=== PATIENT | male | born 1960 | race Caucasian/White ===

== ENCOUNTER 2017-10-01 20:50 | Inpatient (IN) | payer OTHER ==
[~2017-10-01] VITALS: Ht 172.7 cm; Wt 85.7 kg
[2017-10-01 20:59] VITALS: BP 144/80
--- NOTE | 2017-10-01 22:20 | NUR ---
PATIENT IS A 57 Y/O MALE WHO PRESENTS TO THE ED C/O LEFT LEG PAIN. PT STATES, "MY LEG HAS BEEN HURTING." PT REPORTS 10/10 SHARP LEFT LEF PAIN THAT DOES NOT RADIATE. PT DENIES CP, SOB, N/V/D. NOTED LEFT LEG DISCOLORATION WITH CRACKED SKIN, NO OPEN BLEEDING. PT AAOX4, RR EVEN/UNLABORED. PT REPOSITIONED FOR COMFORT, BED IN LOWEST POSITION. ER MD DR. MORRIS NOTIFIED. WILL CONTINUE TO MONITOR.
[2017-10-01] MEDS ORDERED: AMPICILLIN/SULBACTAM 3 GM in NACL 0.9% 100 ML IV ONE (22:55)
[2017-10-01] MEDS ORDERED: CETI-32 PO (22:59)
[2017-10-01] MEDS ORDERED: DIPH25CA86 PO (22:59)
[2017-10-01] MEDS ORDERED: NACL 0.9% 1,000 ML IV SCH (23:27)
[2017-10-01] MEDS ORDERED: ACETAMINOPHEN 325 MG TAB PO PRN (23:30)
[2017-10-01] MEDS ORDERED: ONDANSETRON 4 MG/2 ML VIAL IVP PRN (23:30)
[2017-10-01 23:37] LABS: BASOPHILS # (AUTO) 0.3 K/uL (0.00-0.22); BASOPHILS % (AUTO) 3.6 % (0.0-2.0); EOSINOPHILS # (AUTO) 0.1 K/uL (0-0.4); EOSINOPHILS % (AUTO) 1.5 % (0.0-4.0); HEMATOCRIT 40.9 % (36-52); HEMOGLOBIN 13.5 g/dL (12.0-18.0); LYMPHOCYTES # (AUTO) 1.6 K/uL (2.0-11.5); LYMPHOCYTES % (AUTO) 18.7 % (20.5-51.1); MEAN CORPUSCULAR HEMOGLOBIN 29 pg (27-31); MEAN CORPUSCULAR HGB CONC 33 g/dL (33-37); MEAN CORPUSCULAR VOLUME 88 fL (80-94); MONOCYTES # (AUTO) 0.7 K/uL (0.8-1.0); MONOCYTES % (AUTO) 7.9 % (1.7-9.3); NEUTROPHILS % (AUTO) 68.3 % (42.2-75.2); PLATELET COUNT (AUTO) 275 K/uL (140-450); RED BLOOD CELL COUNT(AUTO) 4.63 MIL/uL (4.20-6.10); RED CELL DISTRIBUTION WIDTH 13.9 % (11.6-13.7); WHITE BLOOD COUNT (AUTO) 8.7 K/uL (4.8-10.8)
[2017-10-01 23:44] LABS: APPEARANCE,URINE CLEAR (CLEAR); BILIRUBIN,URINE NEGATIVE (NEGATIVE); BLOOD, URINE 1+ (NEGATIVE); COLOR,URINE YELLOW (YELLOW); LEUKOCYTE ESTERASE ,URINE NEGATIVE (NEGATIVE); NITRITE, URINE NEGATIVE (NEGATIVE); PH,URINE 5.5 (5.0-9.0); UGLUCOSE NEGATIVE (NEGATIVE)
[2017-10-01] MEDS ORDERED: AMPICILLIN/SULBACTAM 3 GM VIAL ONE (23:53)
[2017-10-01 23:57] LABS: ALBUMIN 3.8 g/dL (3.4-5.0); ANION GAP 13.7 (8-16); CARBON DIOXIDE 25.9 mmol/L (21-32); CREATININE 1.5 mg/dL (0.7-1.3); POTASSIUM 3.6 mmol/L (3.5-5.1); TOTAL BILIRUBIN 0.5 mg/dL (0.0-1.0)
--- NOTE | 2017-10-02 | NUR ---
Patient noted to have existing wounds upon arrival to ER. Photos taken of wound and placed in chart. Wound covered with dressing. Physician informed.
[2017-10-02 00:02] LABS: RBC,URINE 0-5 (RARE) /HPF (0-5); WBC,URINE 0-5 (RARE) /HPF (0-5)
[2017-10-02 00:10] VITALS: BP 123/80
--- NOTE | 2017-10-02 00:10 | NUR ---
Admitted from ER, with chief complaint of L LEG BURNING, DX LEG CELLULITIS. 57 y/o, Male, COOPERATIVE, SEEMS ANXIOUS/RESTLESS, AOX4, AMBULATORY, ABLE TO VERBALIZE NEEDS. PT HAS L LEG CELLULITIS, HEAD OF DIGITAL ADVERTISING & INTEGRATION. PT STATED THAT IT STARTED 4 WEEKS AGO, PT WAS TRYING TO TREAT IT WITH HYDROGEN PEROXIDE. PT ALSO C/O SMALL RED BUMPS ON BUE AND BLE THAT STARTED "WEEKS AGO." IV ACCESS ASYMPTOMATIC, PATENT AND INTACT. WILL ADMINISTER IVF ORDERED. DISCUSSED AND REVIEWED PLAN OF CARE WITH PT. PT VERBALIZED UNDERSTANDING. oriented to call light, bed, phone,television, bathroom, smoking policy, visiting hours, procedures, ID bracelet on. Belongings list checked. ALL NEEDS MET. SAFETY MEASURES ENSURED. CALL LIGHT WITHIN REACH. WILL CONTINUE TO MONITOR.
--- NOTE | 2017-10-02 00:15 | NUR ---
Patient will be admitted to care of DR. ALTMAN. Admited to M/S. Will go to room 120A. Belongings list completed. Report to COREY GALLOWAY.
--- NOTE | 2017-10-02 01:09 | NUR ---
CALLED DR BENITEZ, DISCUSSED PT DX L LEG CELLULITIS, MADE AWARE THAT PT HAS JUST RECEIVED 3GM UNASYN IVPB IN ER, ASKED IF UNASYN 1.5GM IVPB DUE NOW SHOULD BE GIVEN. STATED NO AND GIVE UNASYN IVPB Q6H. CLARIFIED ORDER OF NS AT 0ML, RECEIVED ORDER TO CHANGE TO NS AT 100ML/HR. ORDERS PENDING, WILL CARRY OUT.
[2017-10-02] MEDS: AMPICILLIN/SULBACTAM 1.5 GM in NACL 0.9% 50 ML IV SCH ×4 (01:10→17:18)
[2017-10-02] MEDS: NACL 0.9% 1,000 ML IV SCH ×2 (01:26→12:12)
[2017-10-02] MEDS: MORPHINE SULFATE 2 MG/ML SYR IVP PRN ×2 (01:29→09:49)
--- NOTE | 2017-10-02 01:30 | NUR ---
PT C/O LEG PAIN. SEE PAIN ASSESSMENT. ADMINISTERED MORPHINE IVP PRN ORDERED WITH EDUCATION. PT VERBALIZED UNDERSTANDING.
[2017-10-02] MEDS ORDERED: diphenhydrAMINE 50 MG/ML VIAL IVP PRN (01:40)
--- NOTE | 2017-10-02 02:00 | NUR ---
CALLED DR BENITEZ, DISCUSSED THAT PT IS C/O ITCHING ON LEGS. ORDERS RECEIVED FOR BENADRYL 25MG IVP TID PRN. ALSO MADE MD AWARE THAT PT SEEMS RESTLESS AND FIDGETS, ASKED IF UDS CAN BE ADDED, ORDERS RECEIVED TO ADD UDS. ADMINISTERED BENADRYL IVP PRN ORDERED WITH EDUCATION. PT VERBALIZED UNDERSTANDING. ALL NEEDS MET. IVF INFUSING WELL. SAFETY MEASURES ENSURED. CALL LIGHT WITHIN REACH. WILL CONTINUE TO MONITOR.
[2017-10-02 02:13] LABS: BARBITURATE, URINE NEG. ng/ml (NEG <=200); BENZODIAZEPINE, URINE NEG. ng/mL (NEG <=200); CANNABINOID, URINE POS. ng/mL (NEG <=50); COCAINE, URINE NEG. ng/mL (NEG <=300); OPIATE, URINE NEG. ng/mL (NEG <=2000); PHENCYCLIDINE SCREEN,URINE NEG. ng/mL (NEG <=25)
[2017-10-02] MEDS ORDERED: PNEUMOCOCCAL VACCINE 23 MCG/0.5 ML VIAL IMVAC PRN (02:50)
[2017-10-02] MEDS ORDERED: INFLUENZA VIRUS VACCINE QUAD 0.5 ML SYR IMVAC PRN (02:50)
[2017-10-02] MEDS ORDERED: AMPICILLIN/SULBACTAM 1.5 GM VIAL ONE (05:08)
[2017-10-02 06:31] LABS: BASOPHILS # (AUTO) 0.1 K/uL (0.00-0.22); BASOPHILS % (AUTO) 1.9 % (0.0-2.0); EOSINOPHILS # (AUTO) 0.2 K/uL (0-0.4); EOSINOPHILS % (AUTO) 2.4 % (0.0-4.0); HEMATOCRIT 35.5 % (36-52); HEMOGLOBIN 12.1 g/dL (12.0-18.0); LYMPHOCYTES % (AUTO) 26.6 % (20.5-51.1); MEAN CORPUSCULAR HEMOGLOBIN 30 pg (27-31); MEAN CORPUSCULAR HGB CONC 34 g/dL (33-37); MEAN CORPUSCULAR VOLUME 88 fL (80-94); MONOCYTES # (AUTO) 0.7 K/uL (0.8-1.0); MONOCYTES % (AUTO) 9.5 % (1.7-9.3); NEUTROPHILS # (AUTO) 4.7 K/uL (1.8-7.7); NEUTROPHILS % (AUTO) 59.6 % (42.2-75.2); PLATELET COUNT (AUTO) 224 K/uL (140-450); RED BLOOD CELL COUNT(AUTO) 4.03 MIL/uL (4.20-6.10); RED CELL DISTRIBUTION WIDTH 13.6 % (11.6-13.7); WHITE BLOOD COUNT (AUTO) 7.7 K/uL (4.8-10.8)
[2017-10-02 06:44] LABS: ALBUMIN 3.3 g/dL (3.4-5.0); ANION GAP 10.7 (8-16); CARBON DIOXIDE 26.7 mmol/L (21-32); CREATININE 1.1 mg/dL (0.7-1.3); POTASSIUM 3.4 mmol/L (3.5-5.1); TOTAL BILIRUBIN 0.5 mg/dL (0.0-1.0)
--- NOTE | 2017-10-02 07:15 | NUR ---
ENDORSED PLAN OF CARE TO AM NURSE. CONDITION STABLE.
--- NOTE | 2017-10-02 07:16 | NUR ---
RECEIVED REPORT FROM YOUTH CAREER SPECIALIST RN. PATIENT IS AAOX4, RESPIRATORY EFFORT EVEN AND UNLABORED. HAS NO SIGNS AND SYMPTOMS OF DISTRESS NOTED AT THIS TIME. PATIENT HAS LEFT LEG CELLULITIS AND HAS RASH LOOKING BUMPS ON ALL 4 EXTREMITIES. HAS IV TO RIGHT WRIST 18G, INFUSING NS AT 100 ML/HR. SITE IS CLEAN, DRY, PATENT AND INTACT. PATIENT DENIES ANY PAIN AT THIS TIME. PATIENT KICKS LEGS AROUND QUITE FREQUENTLY. DISCUSSED PLAN OF CARE WITH PATIENT AND HE VERBALIZED UNDERSTANDING. BED IN LOWEST POSITION, SIDE RAILS UP X2, CALL LIGHT PLACED WITHIN REACH. WILL CONTINUE TO MONITOR.
--- NOTE | 2017-10-02 07:20 | NUR ---
DISCHARGE ORDERS ARE IN PLACE. GAVE PATIENT INSTRUCTIONS TO FOLLOW UP WITH PCP, S/S TO GO TO ER FOR, CONTINUE TAKING HOME MEDICATIONS, AND TO TAKE NEW PRESCRIBED MEDICATIONS. EDUCATED PATIENT ON HAND HYGIENE WHEN CLEANING WOUND AREA, AND TO CHANGE DRESSING WHEN SOILED OR NEEDED. PATIENT VERBALIZED UNDERSTANDING. REMOVED PATIENTS IV FROM SITE. STOPPED FLUIDS. SITE IS CLEAN AND DRY. CATHETER INTACT. NO SIGNS AND SYMPTOMS OF DISTRESS. SECURITIES SALES ASSOCIATE TO WHEEL PATIENT OUT.
[2017-10-02 08:00] VITALS: BP 101/67
--- NOTE | 2017-10-02 08:57 | NUR ---
DR ALTMAN AT THE BEDSIDE TALKING TO PATIENT. STATED THAT PER HIS STANDPOINT PATIENT CAN BE DISCHARGED. ALTHOUGH AWAITING WOUND CARE NURSE. ONCE SHE COMES TO HAVE HER PAGE HIM AND TELL HIM HER RECOMMENDATIONS. WILL CONTINUE TO MONITOR.
[2017-10-02] MEDS ORDERED: ENOXAPARIN 40 MG/0.4 ML SYR SUBQ SCH (09:00)
[2017-10-02] MEDS ORDERED: hydrOXYzine HCL 25 MG TAB PO PRN (09:20)
[2017-10-02] MEDS ORDERED: LORATADINE 10 MG TAB PO SCH (09:26)
--- NOTE | 2017-10-02 09:36 | NUR ---
PATIENT HAS BEEN SCREENED AND CATEGORIZED LOW NUTRITION RISK. PATIENT WILL BE SEEN WITHIN 7 DAYS OF ADMISSION. 10/07/[address]
--- NOTE | 2017-10-02 14:16 | NUR ---
CM NOTE INITIAL REVIEW FAXED TO [facility] [phone] JEREMI # [phone]
[2017-10-02] MEDS ORDERED: BETAMETHASONE VALERATE 0.1% TP SCH ×2 (15:00→21:00)
--- NOTE | 2017-10-02 15:33 | NUR ---
PUT BETAMETHASONE CREAM ON BLE PER DOCTORS ORDERS.
[2017-10-02 16:00] VITALS: BP 96/52
[2017-10-02] MEDS ORDERED: predniSONE 20 MG TAB PO SCH (17:30)
[2017-10-02] MEDS ORDERED: ATA25 PO (18:30)
[2017-10-02] MEDS ORDERED: CEPH250C16 PO (18:30)
[2017-10-02] MEDS ORDERED: PRED20TA5 PO (18:30)
[2017-10-02] MEDS ORDERED: VALC TP (18:30)
--- NOTE | 2017-10-03 08:32 | NUR ---
WOUND CARE EVAL. NOT DONE,PT. DISCHARGED.
[2017-10-03] MEDS ORDERED: predniSONE 20 MG TAB PO SCH (09:00)
== END 2017-10-02 19:20 | disposition home or self-care (01) | DRG 385 ==
LOC: MED 20:50 → MTU 23:33
PROVIDERS: ADMIT Hospitalist; ATTEND Hospitalist
PROC: 3E0234Z Introduction of Serum, Toxoid and Vaccine into Muscle, Percutaneous Approach (ICD-10-PCS; principal; 2017-10-02)
DX: L25.5 Unspecified contact dermatitis due to plants, except food (principal); L03.116 Cellulitis of left lower limb; Z23 Encounter for immunization; N18.2 Chronic kidney disease, stage 2 (mild)
CPT/HCPCS: 36415; 80053; 80305; 81001; 85025; 87040; 87081; 90658; 90732; 96365; 99285; J0295; J1200; J1650; J2270; J7030; J7512

== ENCOUNTER 2019-10-27 09:46 | Emergency (ER) | payer OTHER ==
[~2019-10-27] VITALS: Ht 172.7 cm; Wt 89.8 kg
[~2019-10-27 09:46] MED LIST: ATA25 PO; CEPH250C16 PO; CETI-32 PO; PRED20TA5 PO; VALC TP
--- NOTE | 2019-10-27 09:52 | NUR ---
PT AMBULATED TO ER BED 06
[2019-10-27 09:56] VITALS: BP 96/62
--- NOTE | 2019-10-27 09:58 | NUR ---
59 Y/O M C/C BILATERAL HAND PAIN X 1 DAY. PER PT WORKING ON YARD, DOES NOT RECALL TOUCHING ANY CHEMICALS. PT NOT WEARING GLOVES DURING YARD WORK. SKIN PEELING OFF, PAIN 05/17, PT HAS USED IBUPROFEN/LOTION WITH NO RELIEF. PT NKA. NO HX. NO RX. NO N/V/D. SIDE RAIL X1.
--- NOTE | 2019-10-27 10:17 | NUR ---
PT RESTING IN BED, SIDE RAIL X1
[2019-10-27 10:23] VITALS: BP 96/62
--- NOTE | 2019-10-27 10:23 | NUR ---
Patient discharged with v/s stable. Written and verbal after care instructions given and explained. Patient alert, oriented and verbalized understanding of instructions. Ambulatory with steady gait. All questions addressed prior to discharge. ID band removed. Patient advised to follow up with PMD. Rx of KEFLEX,HYDROCORTISONE given. Patient educated on indication of medication including possible reaction and side effects. Opportunity to ask questions provided and answered.
== END 2019-10-27 10:23 | disposition home or self-care (01) ==
LOC: MED 09:46
DX: S60.511A Abrasion of right hand, initial encounter (principal); S60.512A Abrasion of left hand, initial encounter; L03.113 Cellulitis of right upper limb; L03.114 Cellulitis of left upper limb; Z79.899 Other long term (current) drug therapy; X58.XXXA Exposure to other specified factors, initial encounter; Y93.89 Activity, other specified; Y92.89 Other specified places as the place of occurrence of the external cause; Y99.8 Other external cause status
CPT/HCPCS: 99283

== ENCOUNTER 2020-01-20 11:02 | Emergency (ER) | payer OTHER ==
[~2020-01-20] VITALS: Ht 167.6 cm; Wt 85.0 kg
[~2020-01-20 11:02] MED LIST changes: +CETI-120 PO; -CETI-32 PO
--- NOTE | 2020-01-20 11:19 | NUR ---
Patient ambulated to bed 3. RN evaluating patient at bedside.
[2020-01-20 11:20] VITALS: BP 154/97
--- NOTE | 2020-01-20 11:23 | NUR ---
59 Y/O M C/C RIGHT HAND THIRD DIGIT FINGER, 10/10 PAIN, THROBBING. X 3 DAYS. PER PT DENIES TRAUMA/ANIMAL BITE; PER PT UNKNOWN CAUSE. FINGER SWOLLEN, CAP REFILL <3. PT NKA. NO HX. RX AMOXICILLIN DUE TO TOOTHACHE. NO N/V/D. SIDE RAIL X1.
[2020-01-20] MEDS ORDERED: AMOX500C25 PO (11:28)
[2020-01-20] MEDS ORDERED: LIDOCAINE MPF 1% 10 MG/ML VIAL INJ ONE ×2 (12:20→12:50)
--- NOTE | 2020-01-20 12:41 | NUR ---
ERMD AT BEDSIDE
--- NOTE | 2020-01-20 12:43 | NUR ---
LIDOCAINE 1% MPF GIVEN BY ERMD
--- NOTE | 2020-01-20 12:43 | NUR ---
LIDOCAINE 1% MPF GIVEN BY ERMD
[2020-01-20] MEDS ORDERED: BACITRACIN OINT 500 UNITS/GM PKT TP ONE (12:55)
[2020-01-20] MEDS ORDERED: cefTRIAXone 1,000 MG in LIDOCAINE MPF 1% 2.1 ML IM ONE (12:55)
[2020-01-20] MEDS ORDERED: LIDOCAINE MPF 1% 5 ML ONE (12:58)
[2020-01-20] MEDS ORDERED: cefTRIAXone 1,000 MG VIAL ONE (12:58)
--- NOTE | 2020-01-20 13:14 | NUR ---
BACITRACIN OINTMENT APPLIED TO OPEN SURGICAL WOUND TO ALLOW DRAIN----PETROLEUM BASED DRESSING APPLIED FOLLOWED BY 4X4 AND KERLIX---SUPPLIED WITH REMAINING 4X4 AND TAPE TO CHANGE AT HOME AFTER 2 DAYS
[2020-01-20 13:55] VITALS: BP 154/97
--- NOTE | 2020-01-20 13:57 | NUR ---
Patient discharged with v/s stable. Written and verbal after care instructions given and explained. Patient alert, oriented and verbalized understanding of instructions. Ambulatory with steady gait. All questions addressed prior to discharge. ID band removed. Patient advised to follow up with PMD. Rx of keflex, norco, bactrim DS given. Patient educated on indication of medication including possible reaction and side effects. Opportunity to ask questions provided and answered.
== END 2020-01-20 13:57 | disposition home or self-care (01) ==
LOC: MED 11:02
DX: L03.011 Cellulitis of right finger (principal); Z79.899 Other long term (current) drug therapy
CPT/HCPCS: 10060; 96372; 99283; J0696; J2001; J7030

== ENCOUNTER 2020-07-08 16:00 | Emergency (ER) | payer OTHER ==
[~2020-07-08] VITALS: Ht 175.3 cm; Wt 106.6 kg
[~2020-07-08 16:00] MED LIST changes: +AMOX500C25 PO; -ATA25 PO; -CEPH250C16 PO; -CETI-120 PO; -PRED20TA5 PO; -VALC TP
--- NOTE | 2020-07-08 16:06 | NUR ---
pt ambulated to bed 11.
[2020-07-08 16:07] VITALS: BP 131/90
--- NOTE | 2020-07-08 16:13 | NUR ---
JOHNNIE RANDHAWA AT BEDSIDE.
--- NOTE | 2020-07-08 16:17 | NUR ---
XR AT BEDSIDE.
[2020-07-08] MEDS ORDERED: KETOROLAC 30 MG/ML VIAL IM ONE (16:20)
--- NOTE | 2020-07-08 17:00 | NUR ---
applied short posterior leg splint to right ankle
--- NOTE | 2020-07-08 17:03 | NUR ---
PT GIVEN DISC OF IMAGES, VERIFIED BY TWO RNS
--- NOTE | 2020-07-08 17:03 | NUR ---
Patient discharged with v/s stable. Written and verbal after care instructions given and explained. Patient alert, oriented and verbalized understanding of instructions. Ambulatory with steady gait. All questions addressed prior to discharge. ID band removed. Patient advised to follow up with PMD. Rx of NORCO,IBUPROFEN given. Patient educated on indication of medication including possible reaction and side effects. Opportunity to ask questions provided and answered.
[2020-07-08 17:07] VITALS: BP 126/88
== END 2020-07-08 17:03 | disposition home or self-care (01) ==
LOC: MED 16:00
DX: S82.401A Unspecified fracture of shaft of right fibula, initial encounter for closed fracture (principal); Z90.49 Acquired absence of other specified parts of digestive tract; Z79.899 Other long term (current) drug therapy; X58.XXXA Exposure to other specified factors, initial encounter; Y93.89 Activity, other specified; Y92.89 Other specified places as the place of occurrence of the external cause; Y99.8 Other external cause status
CPT/HCPCS: 29515; 73610; 73630; 96372; 99284; J1885; Q0092

== ENCOUNTER 2020-07-30 11:22 | Emergency (ER) | payer OTHER ==
[~2020-07-30] VITALS: Ht 172.7 cm; Wt 97.5 kg
[2020-07-30 11:29] VITALS: BP 90/65
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
--- NOTE | 2020-07-30 13:35 | NUR ---
PT RESTING IN BED QUIETLY. A&O X4, VSS, R/R EQUAL, AND UNLABORED. SIDE RAIL X1 BED IN LOW POSITION, WILL CONTINUE TO MONITOR.
--- NOTE | 2020-07-30 13:46 | NUR ---
Patient being evaluated by Dr. Parrish at bedside.
[2020-07-30] MEDS ORDERED: KETOROLAC 60 MG/2 ML VIAL IM ONE (13:50)
[2020-07-30 14:08] VITALS: BP 90/65
--- NOTE | 2020-07-30 14:09 | NUR ---
Patient discharged with v/s stable. Written and verbal after care instructions given and explained. Patient alert, oriented and verbalized understanding of instructions. Ambulatory with steady gait. All questions addressed prior to discharge. ID band removed. Patient advised to follow up with PMD. Rx of KEFLEX, NORCO, MOTRIN given. Patient educated on indication of medication including possible reaction and side effects. Opportunity to ask questions provided and answered.
== END 2020-07-30 14:19 | disposition home or self-care (01) ==
LOC: MED 11:22
DX: L03.114 Cellulitis of left upper limb (principal); F17.290 Nicotine dependence, other tobacco product, uncomplicated; Z79.899 Other long term (current) drug therapy
CPT/HCPCS: 96372; 99283; J1885

== ENCOUNTER 2020-12-14 12:34 | Emergency (ER) | payer OTHER ==
[~2020-12-14] VITALS: Ht 175.3 cm; Wt 87.5 kg
[2020-12-14 12:50] VITALS: BP 149/70
--- NOTE | 2020-12-14 12:53 | NUR ---
AMBULATED TO BED 8
--- NOTE | 2020-12-14 13:05 | NUR ---
60 y/o M coming in from home with c/c left calf pain. Pt states he visited his primary care physician and was advised to go to the ER for evaluation to rule out DVT/infection. Pt states left leg pain behind the calf x 2 weeks that worsens upon walking. Pt describes pain as 4/10, throbbing/intermittent, non-radiating. Upon assessment, pt presents with bandage wrap around left leg. Pt states "rash for a couple months," redness noted to rash. Pt states itchiness/dryness at rash site. +CMS to left leg. No edema noted. Pt denies taking any medications for pain. Pt denies chest pain, shortness of breath, abdominal pain, dizziness, fever, headache. Lung sounds CTA. Pt placed onto equipment monitor phototypesetting. Bed locked in lowest position, side rails x 1. PMH/Meds: Denies NKA Sx: Rotator cuff, appendectomy 1991
--- NOTE | 2020-12-14 13:07 | NUR ---
JOHNNIE Mensah is evaluating patient at bedside.
[2020-12-14] MEDS ORDERED: IBUPROFEN 600 MG TAB PO ONE (13:10)
--- NOTE | 2020-12-14 13:22 | NUR ---
X-ray at bedside
--- NOTE | 2020-12-14 13:27 | NUR ---
Ultrasound at bedside
--- NOTE | 2020-12-14 14:00 | NUR ---
Patient resting in position of comfort; semi-fowlers. All pt needs met at this time. Respirations even/unlabored. telecommunication lines repairer remains in place. Bed locked in lowest position, side rails x 1, call light in reach.
--- NOTE | 2020-12-14 14:00 | NUR ---
Lab at bedside
[2020-12-14 14:20] LABS: BASOPHILS % (AUTO) 0.4 % (0.0-2.0); EOSINOPHILS # (AUTO) 0.1 K/uL (0-0.4); EOSINOPHILS % (AUTO) 1.8 % (0.0-4.0); HEMATOCRIT 39.6 % (36-52); HEMOGLOBIN 13.2 g/dL (12.0-18.0); LYMPHOCYTES # (AUTO) 1.8 K/uL (2.0-11.5); LYMPHOCYTES % (AUTO) 28.6 % (20.5-51.1); MEAN CORPUSCULAR HEMOGLOBIN 29 pg (27-31); MEAN CORPUSCULAR HGB CONC 33 g/dL (33-37); MEAN CORPUSCULAR VOLUME 87.8 fL (80-94); MONOCYTES # (AUTO) 0.5 K/uL (0.8-1.0); MONOCYTES % (AUTO) 8.7 % (1.7-9.3); NEUTROPHILS # (AUTO) 3.7 K/uL (1.8-7.7); NEUTROPHILS % (AUTO) 60.5 % (42.2-75.2); PLATELET COUNT (AUTO) 244 K/uL (140-450); RED BLOOD CELL COUNT(AUTO) 4.51 MIL/uL (4.20-6.10); RED CELL DISTRIBUTION WIDTH 14.8 % (11.6-13.7); WHITE BLOOD COUNT (AUTO) 6.2 K/uL (4.8-10.8)
[2020-12-14 14:39] LABS: ALBUMIN 3.6 g/dL (3.4-5.0); ANION GAP 12.4 (8-16); CARBON DIOXIDE 27.6 mmol/L (21-32); TOTAL BILIRUBIN 0.2 mg/dL (0.0-1.0)
[2020-12-14 15:00] LABS: PROTHROMBIN TIME 9.5 secs (10.8-13.4)
[2020-12-14] MEDS ORDERED: BACITRACIN OINT 500 UNITS/GM PKT TP ONE (15:05)
--- NOTE | 2020-12-14 15:06 | NUR ---
JOHNNIE Mensah is reevaluating patient at bedside.
--- NOTE | 2020-12-14 15:07 | NUR ---
Patient resting in position of comfort; semi-fowlers. All pt needs met at this time. Respirations even/unlabored. grounds caretaker remains in place. Bed locked in lowest position, side rails x 1, call light in reach.
[2020-12-14] MEDS ORDERED: BACI1PAC6 TP (15:13)
--- NOTE | 2020-12-14 15:17 | NUR ---
APPLIED BACITRACIN AND DRESSING TO LEFT LOWER LEG WIHOUT ANY ISSUES
[2020-12-14 15:22] VITALS: BP 128/83
--- NOTE | 2020-12-14 15:22 | NUR ---
Patient discharged with v/s stable. Written and verbal after care instructions given and explained. Patient alert, oriented and verbalized understanding of instructions. Ambulatory with steady gait. All questions addressed prior to discharge. ID band removed. Patient advised to follow up with PMD. Rx of Bacitracin Zinc Ointment given. Patient educated on indication of medication including possible reaction and side effects. Opportunity to ask questions provided and answered.
== END 2020-12-14 15:22 | disposition home or self-care (01) ==
LOC: MED 12:34
DX: I87.2 Venous insufficiency (chronic) (peripheral) (principal); M79.605 Pain in left leg; R03.0 Elevated blood-pressure reading, without diagnosis of hypertension; Z79.899 Other long term (current) drug therapy; Z98.890 Other specified postprocedural states; Z90.49 Acquired absence of other specified parts of digestive tract
CPT/HCPCS: 36415; 73590; 80053; 85025; 85610; 85730; 93971; 99285

== ENCOUNTER 2021-05-22 00:33 | Emergency (ER) | payer OTHER ==
[~2021-05-22] VITALS: Ht 172.7 cm; Wt 88.9 kg
[~2021-05-22 00:33] MED LIST changes: +BACI1PAC6 TP
[2021-05-22 01:01] VITALS: BP 113/74
--- NOTE | 2021-05-22 01:07 | NUR ---
AMBULATORY TO LOBBY TO A/W BED
--- NOTE | 2021-05-22 01:28 | NUR ---
AMBULATORY TO BED #8
[2021-05-22] MEDS ORDERED: BEN50 PO (02:12)
--- NOTE | 2021-05-22 02:25 | NUR ---
Patient discharged with v/s stable. Written and verbal after care instructions given and explained. Patient alert, oriented and verbalized understanding of instructions. Ambulatory with steady gait. All questions addressed prior to discharge. ID band removed. Patient advised to follow up with PMD. Rx of BENADRYL given. Patient educated on indication of medication including possible reaction and side effects. Opportunity to ask questions provided and answered.
== END 2021-05-22 02:25 | disposition home or self-care (01) ==
LOC: MED 00:33
DX: R21 Rash and other nonspecific skin eruption (principal); L42 Pityriasis rosea; Z79.899 Other long term (current) drug therapy
CPT/HCPCS: 99282

== ENCOUNTER 2021-06-10 10:19 | Emergency (ER) | payer OTHER ==
[~2021-06-10] VITALS: Ht 172.7 cm; Wt 88.5 kg
[~2021-06-10 10:19] MED LIST changes: +BEN50 PO
[2021-06-10 10:32] VITALS: BP 149/94
--- NOTE | 2021-06-10 10:35 | NUR ---
PT TO AWAIT IN LOBBY
--- NOTE | 2021-06-10 11:05 | NUR ---
61/M presents to ED with c/o bilateral hand pain and peeling. Patient states one week he was doing yard work and shortly after began experiencing hand peeling. Patient states pain has been worsening daily and using hands have been progressively harder due to pain. Patient presents with bilateral hand peeling on palms and digits, movement in hands limited due to pain. Denies taking anything for pain, reports using unknown lotion with no improvement in symptoms. Denies fever, chills, cp or sob.
[2021-06-10] MEDS ORDERED: NAPR-54 PO (12:03)
[2021-06-10] MEDS ORDERED: LOTC TP (12:03)
[2021-06-10] MEDS ORDERED: KEN.1O TP (12:03)
[2021-06-10] MEDS ORDERED: KETOROLAC 30 MG/ML VIAL IM ONE (12:05)
--- NOTE | 2021-06-10 12:49 | NUR ---
Patient discharged with v/s stable. Written and verbal after care instructions given and explained. Patient alert, oriented and verbalized understanding of instructions. Ambulatory with steady gait. All questions addressed prior to discharge. ID band removed. Patient advised to follow up with PMD. Rx of KENALOG, LOTRIMIN AND NAPROSYN given. Patient educated on indication of medication including possible reaction and side effects. Opportunity to ask questions provided and answered.
== END 2021-06-10 12:49 | disposition home or self-care (01) ==
LOC: MED 10:19
DX: L25.9 Unspecified contact dermatitis, unspecified cause (principal)
CPT/HCPCS: 96372; 99283; J1885

== ENCOUNTER 2022-02-25 15:31 | Emergency (ER) | payer OTHER ==
[~2022-02-25] VITALS: Ht 172.7 cm; Wt 83.9 kg
[~2022-02-25 15:31] MED LIST changes: +KEN.1O TP; +LOTC TP; +NAPR-54 PO
[2022-02-25 15:38] VITALS: BP 111/89
--- NOTE | 2022-02-25 16:34 | NUR ---
Patient ambulated to bed 10
--- NOTE | 2022-02-25 16:50 | NUR ---
Dr. Lobo is evaluating patient at bedside
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
[2022-02-25] MEDS ORDERED: methocarbamoL 500 MG TAB PO STA (16:53)
[2022-02-25] MEDS ORDERED: LIDOCAINE 5% 1 EA PATCH TP SCH (16:55)
[2022-02-25] MEDS ORDERED: IBUPROFEN 800 MG TAB PO ONE (16:55)
[2022-02-25] MEDS ORDERED: LID5T TP (16:58)
[2022-02-25] MEDS ORDERED: METH-1681 PO (16:58)
[2022-02-25] MEDS ORDERED: IBUP-2213 PO (16:58)
--- NOTE | 2022-02-25 17:08 | NUR ---
Patient to RAD via w/c
--- NOTE | 2022-02-25 17:18 | NUR ---
Pt returned from RAD via WC.
--- NOTE | 2022-02-25 17:42 | NUR ---
Pt states + relief, 3/10 at this time.
--- NOTE | 2022-02-25 17:52 | NUR ---
Patient discharged with v/s stable. Written and verbal after care instructions given and explained. Patient alert, oriented and verbalized understanding of instructions. Ambulatory with steady gait. All questions addressed prior to discharge. ID band removed. Patient advised to follow up with PMD. Rx of Ibuprofen, Lidocaine 5%, Robaxin given. Patient educated on indication of medication including possible reaction and side effects. Opportunity to ask questions provided and answered.
== END 2022-02-25 17:52 | disposition home or self-care (01) ==
LOC: MED 15:31
DX: S16.1XXA Strain of muscle, fascia and tendon at neck level, initial encounter (principal); Z90.49 Acquired absence of other specified parts of digestive tract; Z79.899 Other long term (current) drug therapy; V89.2XXA Person injured in unspecified motor-vehicle accident, traffic, initial encounter; Y93.89 Activity, other specified; Y92.89 Other specified places as the place of occurrence of the external cause; Y99.8 Other external cause status
CPT/HCPCS: 72040; 99284; Q0092

== ENCOUNTER 2022-04-02 22:55 | Emergency (ER) | payer OTHER ==
[~2022-04-02] VITALS: Ht 175.3 cm; Wt 83.9 kg
[~2022-04-02 22:55] MED LIST changes: +IBUP-2213 PO; +LID5T TP; +METH-1681 PO
[2022-04-02 23:00] VITALS: BP 147/98
--- NOTE | 2022-04-02 23:26 | NUR ---
PT TAKEN TO XRAY
--- NOTE | 2022-04-03 01:42 | NUR ---
PT MOVED TO ER BED 5
[2022-04-03] MEDS ORDERED: KETOROLAC 30 MG/ML VIAL IM ONE (02:15)
--- NOTE | 2022-04-03 02:30 | NUR ---
61/M BIB SELF C/O OF LEFT KNEE PAIN S/P FALL. STATED THAT HE FELL AND TWISTED HIS LEG. PAIN IS 10/10 AND SHARP. PATIENT ABLE TO AMBULATE WITH A LIMP, ROM INTACT. APPEARS TO BE IN DISTRESS DUE TO PAIN. RR EVEN AND UNLABORED. PATIETN ASSISTED INTO BED WITH W/C ASSIST. BED LOW AND LOCKED. SIDE RAIL UP FOR SAFETY. ALL NEEDS MET.
--- NOTE | 2022-04-03 03:02 | NUR ---
Ultrasound at bedside.
--- NOTE | 2022-04-03 03:30 | NUR ---
PATIENT STATED THAT PAIN WAS DECREASED 1/10 AND TOLERABLE. SITTING UP IN BED. ABLE TO MOVE LEG WITHOUT DIFFICULTY.
[2022-04-03] MEDS ORDERED: IBUP-2213 PO (05:33)
--- NOTE | 2022-04-03 05:50 | NUR ---
PATIENT RESTING IN BED. DOESNT APPEAR TO BE IN ANY DISTRESS. ALL NEEDS MET
[2022-04-03 06:26] VITALS: BP 130/75
--- NOTE | 2022-04-03 06:26 | NUR ---
Patient discharged with v/s stable. Written and verbal after care instructions given ON ACUTE KNEE PAIN and explained. Patient alert, oriented and verbalized understanding of instructions. Ambulatory with steady gait. All questions addressed prior to discharge. ID band removed. Patient advised to follow up with PMD. Rx of IBUPROFEN given.
--- NOTE | 2022-04-03 06:27 | NUR ---
Chart checked and completed.
== END 2022-04-03 06:26 | disposition home or self-care (01) ==
LOC: MED 22:55
DX: S83.92XA Sprain of unspecified site of left knee, initial encounter (principal); M71.22 Synovial cyst of popliteal space [Baker], left knee; Z72.89 Other problems related to lifestyle; Z79.899 Other long term (current) drug therapy; X58.XXXA Exposure to other specified factors, initial encounter; Y93.89 Activity, other specified; Y92.89 Other specified places as the place of occurrence of the external cause; Y99.8 Other external cause status
CPT/HCPCS: 73562; 93971; 96372; 99285; J1885; Q0092; 99283

== ENCOUNTER 2022-05-18 10:40 | Emergency (ER) | payer OTHER ==
[~2022-05-18] VITALS: Ht 172.7 cm; Wt 80.3 kg
[2022-05-18 10:46] VITALS: BP 143/93
--- NOTE | 2022-05-18 10:55 | NUR ---
Pt ambulated to bed 04.
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
[2022-05-18 11:07] VITALS: BP 145/89
--- NOTE | 2022-05-18 11:15 | NUR ---
XR AT BEDSIDE
[2022-05-18] MEDS ORDERED: KETOROLAC 30 MG/ML VIAL IM ONE (11:25)
--- NOTE | 2022-05-18 12:25 | NUR ---
Patient discharged with v/s stable. Written and verbal after care instructions given and explained. Patient verbalized understanding. Ambulatory with steady gait. All questions addressed prior to discharge. Advised to follow up with PMD.
== END 2022-05-18 12:20 | disposition home or self-care (01) ==
LOC: MED 10:40
DX: M25.812 Other specified joint disorders, left shoulder (principal)
CPT/HCPCS: 73030; 96372; 99283; J1885

== ENCOUNTER 2022-09-26 11:35 | Emergency (ER) | payer OTHER ==
[~2022-09-26] VITALS: Ht 175.3 cm; Wt 77.1 kg
[~2022-09-26 11:35] MED LIST changes: +BACI-416 TP; -BACI1PAC6 TP
[2022-09-26 11:39] VITALS: BP 111/54
[2022-09-26] MEDS ORDERED: KETOROLAC 30 MG/ML VIAL IM ONE (12:05)
--- NOTE | 2022-09-26 12:53 | NUR ---
PT TAKEN TO X RAY VIA W/C
[2022-09-26] MEDS ORDERED: CYCL-711 PO (13:17)
[2022-09-26] MEDS ORDERED: LID5T TP (13:17)
[2022-09-26] MEDS ORDERED: NAPR-54 PO (13:17)
== END 2022-09-26 13:37 | disposition home or self-care (01) ==
LOC: MED 11:35
DX: S67.195A Crushing injury of left ring finger, initial encounter (principal); Z90.49 Acquired absence of other specified parts of digestive tract; Z79.899 Other long term (current) drug therapy; W23.0XXA Caught, crushed, jammed, or pinched between moving objects, initial encounter; Y93.89 Activity, other specified; Y92.89 Other specified places as the place of occurrence of the external cause; Y99.8 Other external cause status
CPT/HCPCS: 73130; 96372; 99283; J1885

== ENCOUNTER 2023-03-15 08:30 | Emergency (ER) | payer OTHER ==
[~2023-03-15] VITALS: Ht 172.7 cm; Wt 83.9 kg
[2023-03-15 08:45] VITALS: BP 123/82
[2023-03-15] MEDS ORDERED: IBUPROFEN 600 MG TAB PO ONE (12:20)
[2023-03-15] MEDS ORDERED: ACETAMINOPHEN EXTRA STRENGTH 500 MG TAB PO ONE (12:20)
[2023-03-15] MEDS ORDERED: IBUP-2213 PO (12:22)
[2023-03-15] MEDS ORDERED: ACET-10509 PO (12:48)
[2023-03-15 12:57] VITALS: BP 125/80
--- NOTE | 2023-03-15 12:57 | NUR ---
Patient discharged with v/s stable. Written and verbal after care instructions given and explained. Patient alert, oriented and verbalized understanding of instructions. Ambulatory with steady gait. All questions addressed prior to discharge. ID band removed. Patient advised to follow up with PMD. Rx of TYLENOL, IBUPROFEN given. Patient educated on indication of medication including possible reaction and side effects. Opportunity to ask questions provided and answered.
== END 2023-03-15 12:57 | disposition home or self-care (01) ==
LOC: MED 08:30
DX: S82.54XA Nondisplaced fracture of medial malleolus of right tibia, initial encounter for closed fracture (principal); S93.601A Unspecified sprain of right foot, initial encounter; Z90.49 Acquired absence of other specified parts of digestive tract; Z79.899 Other long term (current) drug therapy; Z79.1 Long term (current) use of non-steroidal anti-inflammatories (NSAID); Z79.2 Long term (current) use of antibiotics; X58.XXXA Exposure to other specified factors, initial encounter; Y92.89 Other specified places as the place of occurrence of the external cause; Y93.89 Activity, other specified; Y99.8 Other external cause status
CPT/HCPCS: 29515; 73610; 73630; 99284

== ENCOUNTER 2023-03-28 11:19 | Emergency (ER) | payer OTHER ==
[~2023-03-28] VITALS: Ht 172.7 cm; Wt 85.7 kg
[~2023-03-28 11:19] MED LIST changes: +ACET-10509 PO
--- NOTE | 2023-03-28 11:23 | NUR ---
PT AMBULATED TO BED 01
[2023-03-28 11:29] VITALS: BP 132/94
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
[2023-03-28] MEDS ORDERED: LIDOCAINE 1% 500 MG/ 50 ML VIAL INJ ONE (11:35)
[2023-03-28] MEDS ORDERED: LIDOCAINE/EPI MPF 1%1:200000 30 ML VIAL INJ ONE ×2 (11:36→11:40)
--- NOTE | 2023-03-28 11:40 | NUR ---
WOUND TO R THUMB IRRIGATED. SUTURE SET UP
[2023-03-28] MEDS ORDERED: cefTRIAXone 1,000 MG in LIDOCAINE MPF 1% 2.1 ML IM ONE (12:20)
[2023-03-28] MEDS ORDERED: CEPH-588 PO (12:34)
[2023-03-28] MEDS ORDERED: LIDOCAINE MPF 1% 5 ML ONE (12:38)
[2023-03-28] MEDS ORDERED: cefTRIAXone 1,000 MG VIAL ONE (12:38)
--- NOTE | 2023-03-28 12:45 | NUR ---
THUMB SPICA TO R THUMB FIBERGLASS SPLINT APPLIED PER MD. NON ADHERENT APPLIED ON WOUND PRIOR TO SPLINT.
[2023-03-28 13:15] VITALS: BP 132/94
--- NOTE | 2023-03-28 13:15 | NUR ---
Patient discharged with v/s stable. Written and verbal after care instructions given and explained. Patient alert, oriented and verbalized understanding of instructions. Ambulatory with steady gait. All questions addressed prior to discharge. ID band removed. Patient advised to follow up with PMD. Rx of CEPHALEXIN (SENT) given. Patient educated on indication of medication including possible reaction and side effects. Opportunity to ask questions provided and answered. CD GIVEN FOR HAND SPECIALIST F/U
== END 2023-03-28 13:15 | disposition home or self-care (01) ==
LOC: MED 11:19
DX: S61.011A Laceration without foreign body of right thumb without damage to nail, initial encounter (principal); Z90.49 Acquired absence of other specified parts of digestive tract; Z79.899 Other long term (current) drug therapy; W27.8XXA Contact with other nonpowered hand tool, initial encounter; Y93.89 Activity, other specified; Y92.89 Other specified places as the place of occurrence of the external cause; Y99.8 Other external cause status
CPT/HCPCS: 12002; 73130; 90471; 90715; 96372; 99284; J0696; J2001

== ENCOUNTER 2023-08-20 17:08 | Emergency (ER) | payer BC, OTHER ==
[~2023-08-20] VITALS: Ht 172.7 cm; Wt 81.6 kg
[~2023-08-20 17:08] MED LIST changes: -BACI-416 TP; +BACI-418 TP; +CEPH-588 PO
[2023-08-20 17:14] VITALS: BP 115/78; PULSE 88; RESP 18; TEMP 98.1; O2SAT 97
[2023-08-20] MEDS ORDERED: KETOROLAC 60 MG/2 ML VIAL IM ONE (17:25)
[2023-08-20] MEDS ORDERED: IBUP-2213 PO (17:59)
== END 2023-08-20 18:13 | disposition home or self-care (01) ==
LOC: MED 17:08
DX: S63.501A Unspecified sprain of right wrist, initial encounter (principal); Z79.899 Other long term (current) drug therapy; Z79.2 Long term (current) use of antibiotics; Z79.1 Long term (current) use of non-steroidal anti-inflammatories (NSAID); W18.39XA Other fall on same level, initial encounter; Y92.89 Other specified places as the place of occurrence of the external cause; Y93.89 Activity, other specified; Y99.8 Other external cause status
CPT/HCPCS: 73110; 96372; 99283; J1885

== ENCOUNTER 2024-01-31 08:11 | Emergency (ER) | payer BC, OTHER ==
[~2024-01-31] VITALS: Ht 172.7 cm; Wt 86.2 kg
[~2024-01-31 08:11] MED LIST changes: +NAPR-337 PO; -NAPR-54 PO
[2024-01-31 08:16] VITALS: BP 102/69; PULSE 100; RESP 18; TEMP 98.3; O2SAT 100
[2024-01-31 09:08] LABS: APPEARANCE,URINE CLEAR (CLEAR); BILIRUBIN,URINE NEGATIVE (NEGATIVE); BLOOD, URINE 2+ (NEGATIVE); COLOR,URINE YELLOW (YELLOW); LEUKOCYTE ESTERASE ,URINE NEGATIVE (NEGATIVE); NITRITE, URINE NEGATIVE (NEGATIVE); PROTEIN,URINE TRACE (NEGATIVE); UGLUCOSE NEGATIVE (NEGATIVE)
[2024-01-31 09:11] LABS: BASOPHILS % (AUTO) 0.6 % (0.0-2.0); EOSINOPHILS # (AUTO) 0.1 K/uL (0-0.4); EOSINOPHILS % (AUTO) 0.9 % (0.0-4.0); HEMATOCRIT 42.4 % (36-52); LYMPHOCYTES # (AUTO) 1.7 K/uL (2.0-11.5); LYMPHOCYTES % (AUTO) 18.8 % (20.5-51.1); MEAN CORPUSCULAR HEMOGLOBIN 29 pg (27-31); MEAN CORPUSCULAR HGB CONC 33 g/dL (33-37); MEAN CORPUSCULAR VOLUME 89.3 fL (80-94); MONOCYTES # (AUTO) 0.7 K/uL (0.8-1.0); MONOCYTES % (AUTO) 7.5 % (1.7-9.3); NEUTROPHILS # (AUTO) 6.3 K/uL (1.8-7.7); NEUTROPHILS % (AUTO) 72.2 % (42.2-75.2); PLATELET COUNT (AUTO) 290 K/uL (140-450); RED BLOOD CELL COUNT(AUTO) 4.75 MIL/uL (4.20-6.10); RED CELL DISTRIBUTION WIDTH 14.7 % (11.6-13.7); WHITE BLOOD COUNT (AUTO) 8.8 K/uL (4.8-10.8)
[2024-01-31 09:18] LABS: BACTERIA,URINE FEW /HPF (None Seen); SQUAMOUS EPITHELIAL CELL,UR 0-3 (FEW) /LPF (0-3 (FEW)); WBC,URINE 0-5 /HPF (0-5)
[2024-01-31 09:31] LABS: ANION GAP 13.6 (8-16); CALCIUM 9.3 mg/dL (8.5-10.1); CARBON DIOXIDE 28.1 mmol/L (21-32); CREATININE 1.1 mg/dL (0.6-1.3); POTASSIUM 3.7 mmol/L (3.5-5.1)
[2024-01-31 09:35] LABS: ALBUMIN 3.4 g/dL (3.4-5.0); BILIRUBIN,DIRECT 0.1 mg/dL (0.0-0.3); TOTAL BILIRUBIN 0.4 mg/dL (0.0-1.0); TOTAL PROTEIN, SERUM 7.7 g/dL (6.4-8.2)
[2024-01-31] MEDS ORDERED: FAMO-92 PO (09:57)
[2024-01-31] MEDS ORDERED: ONDA-188 PO (09:57)
[2024-01-31 10:08] VITALS: BP 134/60; PULSE 78; RESP 20; TEMP 98.3; O2SAT 99
== END 2024-01-31 10:07 | disposition home or self-care (01) ==
LOC: MED 08:11
DX: R10.30 Lower abdominal pain, unspecified (principal); R30.0 Dysuria; R11.0 Nausea; R35.0 Frequency of micturition; Z79.1 Long term (current) use of non-steroidal anti-inflammatories (NSAID); Z79.899 Other long term (current) drug therapy
CPT/HCPCS: 36415; 80048; 80076; 81001; 83690; 85025; 87086; 99283